=== PATIENT | female | born 1980 | race Caucasian/White ===

== ENCOUNTER 2018-12-18 14:57 | Observation (INO) ==
--- NOTE | 2018-12-18 17:51 | General Surgery Consult Note ---
Date of Encounter: 12/18/18 Time of Encounter: 17:40 Assessment and Plan (1) Abscess of upper arm and forearm, right Current Visit: Yes Status: Acute The patient ate earlier today. I would recommend debridement the operating room. We will plan incision and drainage tomorrow morning. History of Present Illness Consult date: 12/18/18 Reason for consult: other (Multiple right upper extremity abscesses) History of present illness: The patient is a 38-year-old female who has been using heroin for 8 years. She presents with multiple abscesses on the right upper extremity. She has an abscess overlying the olecranon process as well as an abscess in the antecubital fossa. She has multiple track elizondo in both arms and the base of her neck. She has both shakes and chills and both the abscesses are draining. She ate a full diet earlier this afternoon. We will plan on taking her to the operating room for incision and drainage tomorrow morning. I spent 5 minutes today going over the absolute necessity of stopping the use of heroin. This is a significant role guarding throughout her life. Past Med Surg Social Fam HX - Past Medical History Medical history: CVA, other Additional medical history: "betch's" blood disorder Psychiatric history: no psych history - Past Surgical History Surgical History: no surgical history Additional surgical history: RU chest port (now removed), ORIF right ankle - Social History Smoking Status: Current every day smoker Smokeless Tobacco Status: No Alcohol use: none Drug use: none Medications and Allergies Allergy/AdvReac Type Severity Reaction Status Date / Time acetaminophen [From Percocet] Allergy Hives Verified 12/17/18 19:17 oxycodone [From Percocet] Allergy Hives Verified 12/17/18 19:17 vancomycin Allergy Hives Verified 12/17/18 19:16 Review of Systems All systems PM: The remainder of the systems were reviewed and are negative General Surgery Exam - General physical appearance moderate distress, moderate pain, chronically ill - Eyes PERRL, normal ocular movement - Neck no masses, trachea midline, no lymphadectomy, other (Needle track elizondo at the base of the sternocleidomastoid muscle bilaterally) - Respiratory wheezing: bilateral - Cardiovascular Cardiovascular exam: Present: RRR, no murmurs/rubs/gallops - Abdomen Abdomen general surgery: Present: bowel sounds present, soft, non tender - Integumentary Integumentary general surgery: Present: other (Multiple track elizondo both upper extremities. She has small abscess on the left arm but a very large antecubital abscess and olecranon abscess on the right upper extremity. These will require operative debridement) - Neurologic Present: CN 2-12 grossly intact, normal coordination, normal sensation - Psychiatric Psychiatric general surgery: Present: appropriate, oriented to person, oriented to place, oriented to time, speech is normal, memory intact Results - Labs All other labs normal. - Imaging Additional studies: I personally reviewed the CAT scan of the right upper extremity. She has several abscesses involving the subcutaneous tissue and superficial fascia and the antecubital fossa and olecranon area. Personally reviewed the laboratory evaluation [facility]. While count normal at 8200, she has no anemia, electrolytes within normal limits Consult Discharge Plan - Plan Referrals: Yandel Hoffman MD [Primary Care Provider] -
[2018-12-18] MEDS ORDERED: Naloxone 0.4 MG/ML INJ IVP PRN (20:42)
--- NOTE | 2018-12-18 20:50 | Internal Med History&Physical ---
Date of Encounter: 12/18/18 Time of Encounter: 20:50 Internal Medicine - H&P: HPI Chief complaint: Skin Abscess History of present illness: Ms. Mcginnis is a 38 year old female with a past medical history of IV drug abuse who initially presented to [facility] with complaints of fever, chills and increased redness and pain in her right arm. Patient admitted to IV drug abuse prior. Workup at [place] was concerning for a right arm abscess. Patient was admitted to the floor and started on clindamycin and Bactrim due to allergy to vancomycin. A CT scan of the right extremity showed multiloculated subcutaneous or arm abscesses measuring up to 4.8 cm in diameter. Additional abscesses were seen in the posterior medial elbow overlying the old creatinine. Patient was s ubsequently transferred to [facility] for surgical drainage. On arrival patient was afebrile and hemodynamically stable. Laboratory workup was relatively unremarkable. Patient was seen by Dr. Browning shortly after arrival and will take the patient for drainage in the morning. Past Med Surg Social Fam HX - Past Medical History Medical history: CVA, other Additional medical history: "betch's" blood disorder Psychiatric history: no psych history - Past Surgical History Surgical History: no surgical history Additional surgical history: RU chest port (now removed), ORIF right ankle - Social History Smoking Status: Current every day smoker Smokeless Tobacco Status: No Alcohol use: none Drug use: none - Additional Family History Additional family history: Noncontributory Internal Medicine - H&P: Meds No Known Home Drugs 12/19/18 [History] Allergy/AdvReac Type Severity Reaction Status Date / Time oxycodone [From Percocet] Allergy Hives Verified 12/19/18 16:25 vancomycin Allergy Hives Verified 12/19/18 16:25 All Systems PM: A 10-system review of systems was performed and is negative for pertinent findings except as documented above in the HPI. - Constitutional Constitutional: no chills, no fever(s), no night sweats - EENT Eyes: no change in vision, no discharge, no pain, no photophobia Ears: no ear discharge, no ear pain, no tinnitus Nose, mouth and throat: no dysphagia, no nasal discharge, no neck pain, no sore throat - Cardiovascular Cardiovascular ROS IM: no chest pain, no diaphoresis, no dyspnea, no lightheadedness, no palpitations, no syncope - Respiratory Respiratory: no cough, no dyspnea, no wheezing, no excessive phlegm production - Gastrointestinal Gastrointestinal: no abdominal pain, no diarrhea, no hematemesis, no hematochezia, no melena, no nausea, no vomiting - Genitourinary Genitourinary: no change in urinary stream, no dysuria, no flank pain, no hematuria - Musculoskeletal Musculoskeletal ROS IM: no numbness, no tingling - Integumentary Integumentary IM: no rash, no unusual bruising - Neurological Neurological ROS: no confusion, no convulsions, no focal weakness, no numbness, no tingling, no tremor(s) - Hematologic/Lymphatic Hematologic/Lymphatic: no easy bruising - Constitutional Vitals: Temp Pulse Resp BP Pulse Ox 98.3 F 69 14 120/77 96 12/18/18 18:18 12/18/18 18:18 12/18/18 18:18 12/18/18 18:18 12/18/18 18:18 Exam: General: Alert and oriented 3 lying in bed in no acute distress Skin:Normal color, no rash, no lesions. HEENT:EOM, pupils equal, round and reactive. Cardiovascular:Normal S1 & S2, no rubs, murmurs or gallops. No JVD. Pulse regular. Lungs:Normal breath sounds, no wheezes or crackles. Abdomen:Soft, non-tender, no rigidity. Extremities: Right forearm wrapped in surgical dressing. Neurological:Normal cognition and motor skills. Pulses:Carotid and radial pulses normal +2. Rest of the physical exam is non contributory Internal Med - H&P Results - Labs CBC & Chem 7: 12/19/18 03:50 12/19/18 03:50 - Assessment and Plan (1) Abscess of upper arm and forearm, right Current Visit: Yes Status: Acute Assessment and plan: Patient reports recent IV drug abuse in the right antecubital fossa now presenting with evidence of abscess. CT scan of the right extremity shows multiloculated subcutaneous abscess within the right anti-cubital fossa measuring approximately 1.6 x 2.9 x 4.8 cm. Suspected subcutaneous abscess involving the postero-medial elbow overlying the olecranon measuring approximately 3.2 x 1.3 x 2.0 cm. Diffuse subcutaneous edema and skin thickening, likely cellulitis. No soft tissue gas. Patient has no evidence of systemic illness at this time. She received and the Mysoline and Bactrim while at [place]. Patient has been seen by Dr. Browning with surgery and will take the patient for drainage in the morning. Patient does not meet sepsis criteria. -Continue with IV fluids -Continue with antibiotics -Follow blood cultures -Follow-up surgery recommendations (2) History of intravenous drug abuse Current Visit: Yes Status: Acute Assessment and plan: History of IV drug abuse. Patient counseled on the need for cessation. Consider social service liaison consult. (3) Hepatitis C Current Visit: Yes Status: Acute Assessment and plan: Workup at [place] including a hepatitis panel revealed positive hepatitis C antibody screen. Patient will likely need further workup as outpatient. Qualifiers: Viral hepatitis chronicity: unspecified Qualified Code(s): B19.20 - Unspecified viral hepatitis C without hepatic coma (4) DVT prophylaxis Current Visit: Yes Status: Acute Assessment and plan: pneumatic compression devices - Time Spent With Patient Total time spent is greater than 50% in coordination of care (as documented) at patient's floor/unit and/or counseling patient:
[2018-12-18] MEDS: 0.9 % Sodium Chloride 1,000 ML IVC SCH (22:24)
[2018-12-19] MEDS ORDERED: Naloxone 0.4 MG/ML INJ IVP PRN ×4 (00:27→12:06)
[2018-12-19] MEDS ORDERED: Ketorolac 30 MG/ML VIAL IVP PRN ×2 (00:28→12:06)
[2018-12-19] MEDS: *HR* Heparin 5,000 UNIT/ML VIAL SQ SCH ×4 (00:58→20:18)
[2018-12-19 04:03] LABS: Basophils # 0.1 K/mcL (0.0-0.2); Basophils % 0.6 %; Eosinophils # 0.3 K/mcL (0.0-0.6); Eosinophils % 3.4 %; Hematocrit 37.7 % (35.3-44.9); Hemoglobin 12.6 g/dL (11.5-15.4); Immature Granulocytes % 0.2 % (0-4); Lymphocytes # 3.3 K/mcL (0.6-4.6); Lymphocytes % 40.3 %; Mean Corpuscular HGB Conc 33.4 g/dL (31.6-35.5); Mean Corpuscular Hemoglobin 30.8 pg (28.0-33.3); Mean Corpuscular Volume 92.2 fL (83.0-100.0); Mean Platelet Volume 9.6 fL (9.4-12.4); Monocytes # 0.5 K/mcL (0.0-1.3); Platelet Count 218 K/mcL (140-400); Red Blood Count 4.09 M/mcL (3.82-4.97); Red Cell Distribution Width 12.2 % (11.5-14.5); Segmented Neutrophils % 49.5 %
[2018-12-19 04:16] LABS: INR 1.1; Prothrombin Time 12.1 Seconds (9.4-12.1)
[2018-12-19 04:20] LABS: Alanine Aminotransferase 6 Units/L (7-52); Albumin 3.2 g/dL (3.5-5.7); Albumin/Globulin Ratio 0.8 (1.1-2.2); Alkaline Phosphatase 78 Units/L (34-104); Aspartate Amino Transferase 9 Units/L (13-39); BUN/Creatinine Ratio 16 (6-26); Bilirubin,Total 0.2 mg/dL (0.3-1.0); Blood Urea Nitrogen 12 mg/dL (6-20); Carbon Dioxide 24 mEq/L (23-29); Chloride 108 mEq/L (98-107); Globulin 3.9 g/dL (2.4-3.5); Glucose 87 mg/dL (70-105); Osmolality,Calculated 285 (280-300); Potassium 4.2 mEq/L (3.5-5.1); Sodium 138 mEq/L (136-145); Total Protein 7.1 g/dL (6.4-8.9); eGFR For Non-African Americans > 60 (> 60)
[2018-12-19] MEDS ORDERED: Clindamycin 900 MG/50 ML 900 MG/50 ML IV.SOLN IVPB SCH (06:00)
[2018-12-19] MEDS ORDERED: Piperacillin/Tazobactam 3.375 GM in 0.9 % Sodium Chloride Mini Bag 100 ML IVPB SCH (08:16)
--- NOTE | 2018-12-19 08:18 | Internal Med Progress Note ---
Hospitalist Progress Note - Encounter Date of Encounter: 12/19/18 Time of Encounter: 08:15 - Subjective Interval History: No acute events overnight - Exam Vitals: Temp Pulse Resp BP Pulse Ox 97.9 F 60 14 157/100 99 12/19/18 04:00 12/19/18 04:00 12/19/18 04:00 12/19/18 04:00 12/19/18 04:00 Exam: General: Alert and oriented 3 lying in bed in no acute distress Skin:Normal color, no rash, no lesions. HEENT:EOM, pupils equal, round and reactive. Cardiovascular:Normal S1 & S2, no rubs, murmurs or gallops. No JVD. Pulse regular. Lungs:Normal breath sounds, no wheezes or crackles. Abdomen:Soft, non-tender, no rigidity. Extremities: Right forearm wrapped in surgical dressing. Neurological:Normal cognition and motor skills. Pulses:Carotid and radial pulses normal +2. Rest of the physical exam is non contributory - Assessment and Plan (1) Abscess of upper arm and forearm, right Current Visit: Yes Status: Acute Assessment and Plan: Patient reports recent IV drug abuse in the right antecubital fossa now presenting with evidence of abscess. CT scan of the right extremity shows multiloculated subcutaneous abscess within the right anti-cubital fossa measuring approximately 1.6 x 2.9 x 4.8 cm. Suspected subcutaneous abscess involving the postero-medial elbow overlying the olecranon measuring approximately 3.2 x 1.3 x 2.0 cm. Diffuse subcutaneous edema and skin thickening, likely cellulitis. No soft tissue gas. Continue bactrim and zosyn. Surgery on board and plan for drainage (2) History of intravenous drug abuse Current Visit: Yes Status: Acute Assessment and Plan: History of IV drug abuse. Patient counseled on the need for cessation. (3) Hepatitis C Current Visit: Yes Status: Acute Assessment and Plan: Workup at [place] including a hepatitis panel revealed positive hepatitis C antibody screen. Patient will likely need further workup as outpatient. (4) DVT prophylaxis Current Visit: Yes Status: Acute Assessment and Plan: pneumatic compression devices - Time Spent with Patient Total time spent is greater than 50% in coordination of care (as documented) at patient's floor/unit and/or counseling patient: Internal Medicine: Result - Labs CBC & Chem 7: 12/19/18 03:50 12/19/18 03:50 Labs: Short CBC 12/19/18 Range/Units 03:50 WBC 8.1 (4.3-11.1) K/mcL Hgb 12.6 (11.5-15.4) g/dL Hct 37.7 (35.3-44.9) % Plt Count 218 (140-400) K/mcL Neutrophils # 4.0 (1.6-8.9) K/mcL BMP 12/19/18 03:50 Sodium 138 Potassium 4.2 Chloride 108 H Carbon Dioxide 24 BUN 12 Creatinine 0.75 Glucose 87 Calcium 9.0 Liver Function 12/19/18 Range/Units 03:50 Total Bilirubin 0.2 L (0.3-1.0) mg/dL AST 9 L (13-39) Units/L ALT 6 L (7-52) Units/L Alkaline Phosphatase 78 (34-104) Units/L Albumin 3.2 L (3.5-5.7) g/dL - ABG Interpretation ABG results: PT/INR, D-dimer PT 12.1 Seconds (9.4-12.1) 12/19/18 03:50 Consult Discharge Plan - Plan Referrals: Yandel Hoffman MD [Primary Care Provider] -
[2018-12-19] MEDS ORDERED: Sulfamethoxazole/Trimeth DS 1 EACH TABLET PO SCH (09:00)
--- NOTE | 2018-12-19 09:37 | Anesthesia Evaluation PreOp ---
Date of Encounter: 12/19/18 Time of Encounter: 09:35 - Past History Planned Operation: INC & DRAINAGE OF RIGHT ARM/FOREARM ABCESS Cardiac History: HTN (UNDIAGNOSED) Pulmonary History: Smoker [employer] History: Denies Any Significant HX Other Medical History: Hepatic (HEP C), Other (INTRAVENOUS DRUG ABUSE) Anesthesia History: No Prior Anesthetic Complications, Past Anesthesia : No Test: Negative Alcohol Use: none Drug use: none Medications and Allergies Allergy/AdvReac Type Severity Reaction Status Date / Time acetaminophen [From Percocet] Allergy Hives Verified 12/17/18 19:17 oxycodone [From Percocet] Allergy Hives Verified 12/17/18 19:17 vancomycin Allergy Hives Verified 12/17/18 19:16 - Meds/Allergy Pre-op Review Medications Reviewed: Yes Allergies Reviewed: Yes Anesthesia Results - Labs 12/19/18 03:50 12/19/18 03:50 Laboratory Tests 12/19/18 04:26 Urine Test Negative Anesthesia Exam Vital Signs/O2 Sat/Glucose, Most Recent Temp Pulse Resp BP Pulse Ox 97.9 F 60 14 157/100 99 12/19/18 04:00 12/19/18 04:00 12/19/18 04:00 12/19/18 04:00 12/19/18 04:00 Blood Glucose* 96 - HEENT Mallampati: II Teeth: Edentulous Oral Opening: Greater than 3 - Cardiac Rhythm: Regular - Pulmonary Breath Sounds: bilateral Clear Respiratory Effort: Symmetrical Anesthesia Assess/Plan ASA Score: 3 Anesthetic Plan: General, Regional Nerve Block Monitoring Plan: Standard Monitors Recovery Plan: PACU
[2018-12-19] MEDS ORDERED: *HR* Meperidine 25 MG/ML SYRINGE IVP PRN ×2 (09:50→12:06)
[2018-12-19] MEDS ORDERED: Acetaminophen IV 1,000 MG/100 ML INFUS..BTL IVPB ONE ×2 (09:50→12:06)
[2018-12-19] MEDS ORDERED: *HR* Labetalol 20 MG/4 ML SYRINGE IVP PRN ×2 (09:50→12:06)
[2018-12-19] MEDS ORDERED: Ketorolac 30 MG/ML VIAL IVP ONE ×2 (09:50→12:06)
[2018-12-19] MEDS ORDERED: Dexamethasone 4 MG/ML VIAL IVP ONE ×2 (09:50→12:06)
[2018-12-19] MEDS ORDERED: Albuterol 2.5 MG/3 ML NEBULIZER IH ONE (09:50)
[2018-12-19] MEDS ORDERED: *HR* Promethazine 25 MG/ML VIAL IVP PRN ×2 (09:50→12:06)
[2018-12-19] MEDS ORDERED: ROPIVACAINE/PF/NS SYRINGE INTRAART ONE (10:00)
[2018-12-19] MEDS ORDERED: Lidocaine -MPF 2% 2 ML VIAL ONE (10:10)
[2018-12-19] MEDS ORDERED: *HR* Propofol 200 MG/20 ML VIAL IVP ONE (10:10)
[2018-12-19] MEDS ORDERED: Ondansetron 4 MG/2 ML VIAL ONE (10:10)
[2018-12-19] MEDS ORDERED: *HR* FentaNYL (PF) 100 MCG/2 ML VIAL ONE (10:10)
[2018-12-19] MEDS ORDERED: *HR* Midazolam HCl 2 MG/2 ML VIAL ONE ×2 (10:32→11:55)
--- NOTE | 2018-12-19 11:23 | Operative Note ---
Date of procedure: 12/19/18 Pre-op diagnosis: Multiple right upper extremity abscesses Post-op diagnosis: other (Incision and drainage right upper extremity abscess times 4) Procedure: Incision and drainage of right upper extremity abscess times 4 Anesthesia: DELPHINE Surgeon: Laz Browning Was there an technology assistant present: No Estimated blood loss (cc): 10 Specimen: Aerobic and anaerobic cultures Condition: stable Disposition: PACU Procedure in Detail: After informed consent the patient was taken to the major operating suite placed in the supine position given adequate general anesthetic. Right upper extremity is prepped and draped in sterile fashion utilizing Betadine solution and standard draping techniques. Timeout was taken and patient was identified. Once the patient was under general anesthetic I could closely examine her painful right upper extremity. She had a mid forearm abscess. She had a medial forearm abscess just distal to the olecranon process. She had 2 abscesses involving the antecubital fossa connected by fistula. I started with the antecubital I opened the cutaneous fistula into the upper abscess. The underlying tissue was debrided. There did not appear to be any deep necrotic tissue. I then opened obliquely from the antecubital fossa distally into an another abscess cavity that was connected by a total to the more proximal antecubital cavity. This again was debrided to bleeding tissue. Attention was then turned to the distal forearm abscess. This was opened and a large amount of creamy white pus exuded from the wound. This was cultured with aerobic and anaerobic cultures. Electrocautery was used for hemostasis. Attention was then turned to the distal olecranon abscess. This was opened and a large amount of creamy white pus exuded from the wound. Electrocautery was used for hemostasis on the skin edge. We did underlying necrotic tissue. There were no connecting tracts or tunnels. All 4 wounds were packed individually with iodoform. a sterile dressing is applied. She tolerated the procedure well.
--- NOTE | 2018-12-19 11:32 | Anesthesia Procedures ---
Date of Encounter: 12/19/18 Time of Encounter: 10:30 Procedures: Anesthesia - Nerve Block Procedure Date: 12/19/18 Time: 10:30 Allergies/Adv Reactions: vancomycin, percocet Pre-op Diagnosis: abcess Surgical Procedure: I and D Checklist: Correct Patient Identifier, Correct procedure, History checked Correct side: Left Blood Thinner: No Monitor Applied: EKG, BP, Pulse Oximetry Supplemental Oxygen via Nasal Cannula (L/min): 2 Sedation: Versed (mg): 2 Sedation: Fentanyl (mcg): 100 Indication: Post Op Analgesia Pre-op Neuro Deficits: No Block Type: Supraclavicular Sterile Technique: Yes Ultrasound used: Yes Anatomy identified: Yes Visual spread of Local: Yes Neuro Stimulation: No Blood on Needle Aspiration: No Smooth Injection of Local: Yes Pain with Injection of Local: No Prep: Chlorhexadine Needle: 22 x 50 mm Stimuplex Local: Ropivacaine (0.25%) Volume (cc): 20 Number of Attempts: 1 Complications: None/effective block Vitals: Vital Signs Time 1035 BP 157/100 Pulse 60 Resp 20 O2 Sat 99 Comments: assist per Dr Singh
[2018-12-19] MEDS ORDERED: 0.9 % Sodium Chloride 1,000 ML IVC SCH (12:06)
[2018-12-19] MEDS: 0.9 % Sodium Chloride 1,000 ML IVC SCH (12:42)
[2018-12-19] MEDS: Piperacillin/Tazobactam 3.375 GM in 0.9 % Sodium Chloride Mini Bag 100 ML IVPB SCH ×2 (15:14→23:41)
--- NOTE | 2018-12-19 18:10 | Anesthesia Evaluation Post Op ---
Date of Encounter: 12/19/18 Time of Encounter: 11:58 - Discharge PostOp Status: Transfer Patient to floor (Patient's vital signs have been reviewed. Patient is stable postoperatively and has adequately recovered from anesthesia. Patient is determined to have stable airway patency and respiratory function including respiratory rate and oxygen saturation. Patient has a stable heart rate, blood pressure and adequate hydration. Patients mental status is acceptable. Patients temperature is appropriate. Pain and nausea are adequately controlled.)
[2018-12-19] MEDS ORDERED: *HR* LORazepam 2 MG/ML VIAL IVP PRN (19:19)
[2018-12-19] MEDS: Sulfamethoxazole/Trimeth DS 1 EACH TABLET PO SCH (20:11)
[2018-12-20] MEDS: *HR* Heparin 5,000 UNIT/ML VIAL SQ SCH (05:05)
[2018-12-20] MEDS: Sulfamethoxazole/Trimeth DS 1 EACH TABLET PO SCH (08:17)
[2018-12-20] MEDS: Piperacillin/Tazobactam 3.375 GM in 0.9 % Sodium Chloride Mini Bag 100 ML IVPB SCH (08:18)
[2018-12-20 08:39] LABS: Basophils % 0.4 %; Eosinophils % 0.4 %; Hemoglobin 12.7 g/dL (11.5-15.4); Immature Granulocytes % 0.3 % (0-4); Lymphocytes # 3.4 K/mcL (0.6-4.6); Lymphocytes % 33.9 %; Mean Corpuscular HGB Conc 34.3 g/dL (31.6-35.5); Mean Corpuscular Hemoglobin 31.1 pg (28.0-33.3); Mean Corpuscular Volume 90.7 fL (83.0-100.0); Mean Platelet Volume 9.4 fL (9.4-12.4); Monocytes # 0.4 K/mcL (0.0-1.3); Neutrophils # 6.1 K/mcL (1.6-8.9); Platelet Count 245 K/mcL (140-400); Red Blood Count 4.08 M/mcL (3.82-4.97); Red Cell Distribution Width 12.3 % (11.5-14.5)
[2018-12-20 08:57] LABS: BUN/Creatinine Ratio 16 (6-26); Blood Urea Nitrogen 13 mg/dL (6-20); Calcium 9.1 mg/dL (8.6-10.3); Carbon Dioxide 24 mEq/L (23-29); Chloride 106 mEq/L (98-107); Glucose 92 mg/dL (70-105); Osmolality,Calculated 284 (280-300); Sodium 137 mEq/L (136-145); eGFR For Non-African Americans > 60 (> 60)
[2018-12-20 09:54] VITALS: BP 115/72
--- NOTE | 2018-12-20 11:33 | General Surgery Progress Note ---
<ChadEduardo Alfredo - Last Filed: 12/20/18 11:31> Date of Encounter: 12/20/18 Time of Encounter: 11:31 - Assessment and Plan (1) Abscess of upper arm and forearm, right Current Visit: Yes Status: Acute -I&D 4 RUE abscesses yesterday likely 2/2 IVDU -Drained postoperatively yesterday which improved today -Day 2 zosyn -Afebrile, no leukocytosis -Cultures pending -Will followup with Dr Villanueva in wound care clinic in 2 weeks -Surgery will sign off and ok to dc when primary service ready Subjective Patient reports: no new complaints, feels better, pain is less, tolerating a regular diet, afebrile Objective Vital Signs - Last 8 Hours Temp Pulse Resp BP Pulse Ox 12/20/18 09:50 98.0 F 74 14 115/72 98 12/20/18 07:59 98.9 F 73 14 127/80 96 12/20/18 04:32 98.6 F 118 16 146/75 94 Intake and Output 12/19/18 12/20/18 12/20/18 23:59 07:59 15:59 Intake Total 1220 / 1220 100 / 100 Output Total 210 / 210 900 / 900 250 / 250 Balance 1010 / 1010 -800 / -800 -250 / -250 Intake: IV Fluids 1100 / 1100 100 / 100 0.9 % Sodium Chloride 1,000 ML 1000 / 1000 @ 100 mls/hr IVC .Q10H [facility] Rx#: [id number] Zosyn 3.375 GM In 0.9 % Sodium 100 / 100 100 / 100 Chloride (Mini-Bag +) 100 ML @ 25 mls/hr IVPB Q8HR [facility] Rx#: [id number] Oral 120 / 120 Output: Urine 200 / 200 900 / 900 250 / 250 Estimated Blood Loss 10 / 10 Other: Meal Dinner Percent of Meal Consumed 0% # Voids 3 # Bowel Movements 0 0 - General physical appearance well developed, well nourished, no distress - Eyes normal ocular movement - ENT dry mucosa - Neck Neck exam: trachea midline - Respiratory normal expansion, normal respiratory effort, clear to auscultation - Cardiovascular Cardiovascular exam: Present: RRR. Absent: bradycardia, tachycardia, irregular rhythm, murmurs, clicks, rubs, gallop, distant heart sounds, JVD - Abdomen Abdomen: Present: bowel sounds present, soft, non tender - Incision Incision: Present: draining, clean and dry. Absent: red, swollen, inflamed, erythema, purulent, indurated, serous, serosanguinous - Integumentary no rash - Neurologic CN 2-12 grossly intact - Psychiatric speech is normal - Labs 12/20/18 08:24 12/20/18 08:24 Diabetes panel 12/20/18 Range/Units 08:24 Sodium 137 (136-145) mEq/L Potassium 4.0 (3.5-5.1) mEq/L Chloride 106 (98-107) mEq/L Carbon Dioxide 24 (23-29) mEq/L BUN 13 (6-20) mg/dL Creatinine 0.81 (0.60-1.20) mg/dL Glucose 92 (70-105) mg/dL Calcium 9.1 (8.6-10.3) mg/dL Calcium panel 12/20/18 Range/Units 08:24 Calcium 9.1 (8.6-10.3) mg/dL Pituitary panel 12/20/18 Range/Units 08:24 Sodium 137 (136-145) mEq/L Potassium 4.0 (3.5-5.1) mEq/L Chloride 106 (98-107) mEq/L Carbon Dioxide 24 (23-29) mEq/L BUN 13 (6-20) mg/dL Creatinine 0.81 (0.60-1.20) mg/dL Glucose 92 (70-105) mg/dL Calcium 9.1 (8.6-10.3) mg/dL Adrenal panel 12/20/18 Range/Units 08:24 Sodium 137 (136-145) mEq/L Potassium 4.0 (3.5-5.1) mEq/L Chloride 106 (98-107) mEq/L Carbon Dioxide 24 (23-29) mEq/L BUN 13 (6-20) mg/dL Creatinine 0.81 (0.60-1.20) mg/dL Glucose 92 (70-105) mg/dL Calcium 9.1 (8.6-10.3) mg/dL Consult Discharge Plan - Plan Referrals: Yandel Hoffman MD [Primary Care Provider] - <Laz Browning - Last Filed: 12/20/18 11:54> Date of Encounter: 12/20/18 - Assessment and Plan (1) Abscess of upper arm and forearm, right Current Visit: Yes Status: Acute Objective Vital Signs - Last 8 Hours Temp Pulse Resp BP Pulse Ox 12/20/18 09:50 98.0 F 74 14 115/72 98 12/20/18 07:59 98.9 F 73 14 127/80 96 12/20/18 04:32 98.6 F 118 16 146/75 94 Intake and Output 12/19/18 12/20/18 12/20/18 23:59 07:59 15:59 Intake Total 1220 / 1220 100 / 100 Output Total 210 / 210 900 / 900 250 / 250 Balance 1010 / 1010 -800 / -800 -250 / -250 Intake: IV Fluids 1100 / 1100 100 / 100 0.9 % Sodium Chloride 1,000 ML 1000 / 1000 @ 100 mls/hr IVC .Q10H [facility] Rx#: [id number] Zosyn 3.375 GM In 0.9 % Sodium 100 / 100 100 / 100 Chloride (Mini-Bag +) 100 ML @ 25 mls/hr IVPB Q8HR [facility] Rx#: [id number] Oral 120 / 120 Output: Urine 200 / 200 900 / 900 250 / 250 Estimated Blood Loss Other: Meal Dinner Percent of Meal Consumed 0% # Voids 3 # Bowel Movements 0 0 - Labs 12/20/18 08:24 12/20/18 08:24 Diabetes panel 12/20/18 Range/Units 08:24 Sodium 137 (136-145) mEq/L Potassium 4.0 (3.5-5.1) mEq/L Chloride 106 (98-107) mEq/L Carbon Dioxide 24 (23-29) mEq/L BUN 13 (6-20) mg/dL Creatinine 0.81 (0.60-1.20) mg/dL Glucose 92 (70-105) mg/dL Calcium 9.1 (8.6-10.3) mg/dL Calcium panel 12/20/18 Range/Units 08:24 Calcium 9.1 (8.6-10.3) mg/dL Pituitary panel 12/20/18 Range/Units 08:24 Sodium 137 (136-145) mEq/L Potassium 4.0 (3.5-5.1) mEq/L Chloride 106 (98-107) mEq/L Carbon Dioxide 24 (23-29) mEq/L BUN 13 (6-20) mg/dL Creatinine 0.81 (0.60-1.20) mg/dL Glucose 92 (70-105) mg/dL Calcium 9.1 (8.6-10.3) mg/dL Adrenal panel 12/20/18 Range/Units 08:24 Sodium 137 (136-145) mEq/L Potassium 4.0 (3.5-5.1) mEq/L Chloride 106 (98-107) mEq/L Carbon Dioxide 24 (23-29) mEq/L BUN 13 (6-20) mg/dL Creatinine 0.81 (0.60-1.20) mg/dL Glucose 92 (70-105) mg/dL Calcium 9.1 (8.6-10.3) mg/dL - Attending Attestation I examined this patient and my medical decision-making was reviewed with the Resident Physician. I agree with the documented findings, disposition and treatment plan as described except to the extent set forth below. The patient is seen and evaluated on morning rounds. She has had tremendous improvement in the pain in her arm. She should have daily packing with iodoform. She should follow-up in wound care clinic with Dr. Leonard. Surgery will sign off. Laz Browning MD FACS
--- NOTE | 2018-12-20 12:10 | Discharge Summary ---
Orders not resulted at time of discharge: Pending orders 12/18/18 17:58 EKG [ECG 12 lead ECG] [ECG] Stat 12/19/18 09:45 US anesthesia pain block [US] Routine 12/19/18 11:11 Culture,Anaerobic [RM] Routine Culture,Wound [RM] Routine Date of Encounter: 12/20/18 Time of Encounter: 12:00 - Discharge Diagnosis (1) Abscess of upper arm and forearm, right Priority: Primary Status: Acute Assessment and Plan: 38 year old female with a past medical history of IV drug abuse who initially presented to [facility] with complaints of fever, chills and increased redness and pain in her right arm. Patient admitted to IV drug abuse prior. Workup at [facility] was concerning for a right arm abscess. Patient was admitted to the floor and started on clindamycin and Bactrim due to allergy to vancomycin. A CT scan of the right extremity showed multiloculated subcutaneous or arm abscesses measuring up to 4.8 cm in diameter. Additional abscesses were seen in the posterior medial elbow. She was started on broad spectrum antibiotics and seen by surgery. She had incision and drainage of right upper extremity abscess times 4 done by surgery. She tolerated procedure well with no acute complications. She was discharged on a 5 day course of bactrim and augmentin and will follow up outpatient with surgery Hospital course: Ms. Mcginnis is a 38 year old female - Time Spent with Patient Total time spent providing and/or coordinating discharge services: - Discharge Medications Prescriptions: New Sulfamethoxazole/Trimeth DS [Bactrim Ds] 1 each PO BID 5 Days #10 tablet Amoxicillin/Clavulanate [Augmentin] 875 mg PO BIDWM 5 Days #10 tablet Home Medications: Amoxicillin/Clavulanate [Augmentin] 875 mg PO BIDWM 5 Days #10 tablet 12/20/18 [Rx] Sulfamethoxazole/Trimeth DS [Bactrim Ds] 1 each PO BID 5 Days #10 tablet 12/20/18 [Rx] Allergies/Adverse Reactions: Allergy/AdvReac Type Severity Reaction Status Date / Time oxycodone [From Percocet] Allergy Hives Verified 12/19/18 16:25 vancomycin Allergy Hives Verified 12/19/18 16:25 Date of admission: 12/18/18 17:36 Primary care physician: Yandel Hoffman Consults: 12/18/18 18:17 Consult to Invasive Line Access Team [CONS] Routine Reason for Consult: minimal access, only use left arm Line Type: EPIV PICC line indications: Limited vascular access - Constitutional Vitals: Temp Pulse Resp BP Pulse Ox 98.0 F 74 14 115/72 98 12/20/18 09:50 12/20/18 09:50 12/20/18 09:50 12/20/18 09:50 12/20/18 09:50 Exam: General: Alert and oriented 3 lying in bed in no acute distress Skin:Normal color, no rash, no lesions. HEENT:EOM, pupils equal, round and reactive. Cardiovascular:Normal S1 & S2, no rubs, murmurs or gallops. No JVD. Pulse regular. Lungs:Normal breath sounds, no wheezes or crackles. Abdomen:Soft, non-tender, no rigidity. Extremities: Right forearm wrapped in surgical dressing. Neurological:Normal cognition and motor skills. Pulses:Carotid and radial pulses normal +2. Rest of the physical exam is non contributory - Patient Status Disposition: Home, Self-Care Condition: Good - Discharge Instructions Follow Up With: Chino Villanueva MD [Non-Partnered Physician] - (Web Request made for follow up appointment ) Yandel Hoffman MD [Primary Care Provider] -
--- NOTE | 2018-12-23 22:06 | Electrocardiograph Report ---
[address] [place], [place] [address] Test Date: 2018-12-19 Pat Name: Ger Mcginnis Department: 115 Room: 3A21 Gender: F Audiovisual Lead Technician: : 1980 Requested By: Laz Browning Order Number: [id number] Reading MD: Kashmir Byrnes Measurements Intervals [place] Rate: 57 P: 24 AR: 144 QRS: 74 QRSD: 89 T: 67 QT: 441 QTc: 435 Interpretive Statements SINUS BRADYCARDIA Electronically Signed On 12-23-2018 22:05:18 EDT by Kashmir Byrnes
== END 2018-12-20 14:49 | disposition home or self-care (01) ==
LOC: 3ANU
PROVIDERS: ADMIT Internal Medicine; ATTEND Internal Medicine